=== PATIENT | male | born 1990 | race Caucasian/White ===

== ENCOUNTER 2016-11-05 09:11 | Inpatient (IN) | payer BC, OTHER ==
[2016-11-05 10:01] LABS: % IMMATURE GRANULYOCYTES 0.2 % (0.0-1.1); ABSOLUTE IMMATURE GRANULOCYTES 0.01 10^3/uL (0.00-0.10); ADD DIFF? NO; ADD MORPH? NO; ADD SCAN? NO; ATYPICAL LYMPHOCYTE FLAG 30 (0-99); FRAGMENT RBC FLAG 0 (0-99); HEMATOCRIT 47.8 % (40.0-51.0); HEMOGLOBIN 16.4 g/dL (13.7-17.5); LEFT SHIFT FLG 0 (0-99); LIPEMIA HEMOLYSIS FLAG 90 (0-99); MEAN CELL HEMOGLOBIN 29.7 pg (27.9-34.1); MEAN CELL HEMOGLOBIN CONCENTR. 34.3 g/dL (32.4-36.7); MEAN CELL VOLUME 86.6 fL (81.5-99.8); MEAN PLATELET VOLUME 9.4 fL (8.7-11.7); PLATELET CLUMPS FLAG 0 (0-99); PLATELET COUNT 315 10^3/uL (150-400); RED BLOOD CELL COUNT 5.52 10^6/uL (4.40-6.38); RED CELL DISTRIBUTION WIDTH 12.2 % (11.5-15.2)
[2016-11-05 10:21] LABS: ALANINE AMINOTRANSFERASE 44 IU/L (21-72); ALBUMIN 4.6 g/dL (3.5-5.0); ALKALINE PHOSPHATASE 80 IU/L (38-126); ANION GAP 15 mEq/L (8-16); ASPARTATE AMINOTRANSFERASE 29 IU/L (17-59); BILIRUBIN,TOTAL 1.1 mg/dL (0.1-1.4); CALCIUM 10.2 mg/dL (8.5-10.4); CARBON DIOXIDE 24 mEq/l (22-31); CHLORIDE 104 mEq/L (97-110); GLOMERULAR FILTRATION RATE > 60; GLUCOSE 92 mg/dL (70-100); POTASSIUM 4.3 mEq/L (3.5-5.2); SODIUM 143 mEq/L (134-144); TOTAL PROTEIN 8.2 g/dL (6.3-8.2)
--- NOTE | 2016-11-05 10:21 | EDPHY ---
H & P Stated Complaint: took friends 15mg ER morphine sulfate 2299-still feels "off" - Personal History Current Tetanus/Diphtheria Vaccine: Unsure Current Tetanus Diphtheria and Acellular Pertussis (TDAP): Unsure - Medical/Surgical History Hx Asthma: No Hx Chronic Respiratory Disease: No Hx Diabetes: No Hx Cardiac Disease: No Hx Renal Disease: No Hx Cirrhosis: No Hx Alcoholism: No Hx HIV/AIDS: No Hx Splenectomy or Spleen Trauma: No Other PMH: denies - Social History Smoking Status: Former smoker Time Seen by Provider: 11/05/16 09:28 HPI/ROS: CHIEF COMPLAINT: " I'm off" HISTORY OF PRESENT ILLNESS: 25-year-old male generally healthy with no history of hospitalizations, surgery, history of chronic neurologic dysfunction or disorder states that 3 days ago he consumed a 30 mg morphine tablet which he obtained from a friend for recreational purposes. He states that ever since consuming this he has felt like he has been in a fog, describes feeling "just off", experiencing diplopia, gait instability, difficulty writing. He denies: Headache, photophobia, trauma, fevers, flu-like symptoms, chest pain, back pain , abdominal pain, peripheral paresthesia, weakness, numbness. PRIMARY CARE PROVIDER:none REVIEW OF SYSTEMS: A ten point review of systems was performed and is negative with the exception of the items mentioned in the HPI PAST MEDICAL & SURGICAL HISTORY: No pertinent medical or surgical history SOCIAL HISTORY: No history of chronic alcohol or street drug use beyond recent recreational tablet use described to the patient as "morphine" FAMILY HISTORY: No family history of neurologic disease. PHYSICAL EXAM (Prior to examination, patient consented to physical exam, hands were washed and my usual and customary physical exam procedures followed) 1) GENERAL: Well-developed, well-nourished, alert and oriented. Appears anxious and tremulous 2) HEAD: Normocephalic, atraumatic 3) HEENT: Pupils equal, round, reactive to light bilaterally. Sclera anicteric. No gross gait abnormality Nasopharynx, oropharynx, clear, no lesions. Ears bilaterally with normal tympanic membranes. 4) NECK: Full range of motion, no meningeal signs. 5) LUNGS: Clear auscultation bilaterally, no wheezes, no rhonchi, no retractions. 6) HEART: Regular rate and rhythm, no murmur, no heave, no gallop. 7) ABDOMEN: No guarding, no rebound, no focal tenderness, negative McBurney's, negative Whitfield's, negative Rovsing's, negative peritoneal sign, 8) MUSCULOSKELETAL: Moving all extremities, no focal areas of tenderness, no obvious trauma. No peripheral edema or discoloration. 9) BACK: No CVA tenderness, no midline vertebral tenderness, no fluctuance, no step-off, no obvious trauma, no visual or palpable abnormality. 10) SKIN: No rash, no petechiae. 11) Psychiatric: Patient is oriented X 3, there is no agitation. NEURO: Awake, alert, and oriented to person, place and time. Answers questions appropriately. There were no obvious focal neurologic abnormalities. Positive cerebellar dysfunction are namely heel to toe dysfunction is present. Cranial nerves 2 through to 12 intact. Normal steady gait. Upper and lower extremities bilaterally with strength 5 / 5, reflexes 2+. DIFFERENTIAL DIAGNOSIS: in no particular order including but not limited to intoxicants use, multiple sclerosis, malignancy, transverse myelitis (Garrick Ortiz) Constitutional: Initial Vital Signs Temperature (C) 36.5 C 11/05/16 09:23 Heart Rate 68 11/05/16 09:23 Respiratory Rate 16 11/05/16 09:23 Blood Pressure 137/87 H 11/05/16 09:23 O2 Sat (%) 98 11/05/16 09:23 O2 Delivery Mode Room Air Allergies/Adverse Reactions: No Known Allergies Allergy (Unverified 06/01/15 19:58) Home Medications: Medication Instructions Recorded NK [No Known Home Meds] 11/05/16 Medical Decision Making - Diagnostics Imaging Results: Imaging Impressions Brain MRI 11/05/16 10:09 Impression: 1. Severe bilateral pansinusitis with fluid levels. 2. Otherwise normal MRI brain without and with contrast. 3. No acute infarct, acute hemorrhage, hydrocephalus, or enhancing lesions. Findings and recommendations discussed with Emergency Department physicianGarrick at 1248 hour, 11/05/2016. Final report concurs with initial preliminary interpretation. Lumbar Spine MRI 11/05/16 10:21 Impression: 1. L4-L5: Mild central canal stenosis and bilateral lateral recess stenosis, secondary to small central disk herniation, mild bilateral facet arthropathy and mild degenerative disk disease. 2. L5-S1: Small central subligamentous disk herniation, protrusion, with annular tear and mild bilateral facet arthropathy with moderate degenerative disk disease. However, no central canal or neural foraminal stenosis. 3. Please see above findings at specific levels. Findings and recommendations discussed with Emergency Department physician, Garrick Ortiz, PAC at 1207 hour, 11/05/2016. Final report concurs with initial preliminary interpretation. ED Course/Re-evaluation: Care discussed with Dr. Nitin Crooks in the emergency department. Patient observed for a period of time in the emergency department. MRI was obtained as he complained of diplopia, noted to have cerebellar dysfunction on exam. This was subsequently negative for acute pathology beyond sinusitis. Re-evaluation with serial exams most recently at 1:05 p.m.. He remains ataxic, cerebellar dysfunction noted, unable to ambulate without assistance, complains of continued this diplopia. I reviewed his MRI results showing no definitive acute abnormality. I recommended admission. He is agreeable with this. Phone consultation with hospitalist Shira, admit to Dr. Anne and they will consult with Neurology. (Garrick Ortiz) I did not see this patient while he was in the emergency department. However his care was discussed with the PA while the patient was in the department. I agree with treatment plan and management (Nitin Crooks) - Data Points Laboratory Results: Laboratory Results 11/05/16 09:40 11/05/16 09:40 11/05/16 11/05/16 11/05/16 09:40 09:40 09:40 WBC RBC Hgb Hct MCV MCH MCHC RDW Plt Count MPV Neut % (Auto) Lymph % (Auto) Haywood % (Auto) Eos % (Auto) Baso % (Auto) Nucleat RBC Rel Count Absolute Neuts (auto) Absolute Lymphs (auto) Absolute Monos (auto) Absolute Eos (auto) Absolute Basos (auto) Absolute Nucleated RBC Immature Gran % Immature Gran # Sodium Potassium Chloride Carbon Dioxide Anion Gap BUN Creatinine Estimated GFR Glucose Calcium Total Bilirubin 1.1 mg/dL mg/dL (0.1-1.4) Conjugated Bilirubin 0.4 mg/dL mg/dL (0.0-0.5) Unconjugated Bilirubin 0.7 mg/dL mg/dL (0.0-1.1) AST 30 IU/L IU/L (17-59) ALT 41 IU/L IU/L (21-72) Alkaline Phosphatase 83 IU/L IU/L (38-126) Total Protein 8.1 g/dL g/dL (6.3-8.2) Albumin 4.6 g/dL g/dL (3.5-5.0) Salicylates < 1.0 mg/dL L mg/dL (2.0-20.0) Urine Opiates Screen NEGATIVE (NEGATIVE) Acetaminophen < 10 mcg/mL L mcg/mL (10-30) Urine Barbiturates NEGATIVE (NEGATIVE) Ur Phencyclidine Scrn NEGATIVE (NEGATIVE) Ur Amphetamine Screen NEGATIVE (NEGATIVE) U Benzodiazepines Scrn NEGATIVE (NEGATIVE) Urine Cocaine Screen NEGATIVE (NEGATIVE) U Marijuana (THC) Screen NEGATIVE (NEGATIVE) Ethyl Alcohol < 10 mg/dL mg/dL (0-10) 11/05/16 11/05/16 09:40 09:40 WBC 6.03 10^3/uL 10^3/uL (3.80-9.50) RBC 5.52 10^6/uL 10^6/uL (4.40-6.38) Hgb 16.4 g/dL g/dL (13.7-17.5) Hct 47.8 % % (40.0-51.0) MCV 86.6 fL fL (81.5-99.8) MCH 29.7 pg pg (27.9-34.1) MCHC 34.3 g/dL g/dL (32.4-36.7) RDW 12.2 % % (11.5-15.2) Plt Count 315 10^3/uL 10^3/uL (150-400) MPV 9.4 fL fL (8.7-11.7) Neut % (Auto) 54.5 % % (39.3-74.2) Lymph % (Auto) 38.5 % % (15.0-45.0) Haywood % (Auto) 5.8 % % (4.5-13.0) Eos % (Auto) 0.5 % L % (0.6-7.6) Baso % (Auto) 0.5 % % (0.3-1.7) Nucleat RBC Rel Count 0.0 % % (0.0-0.2) Absolute Neuts (auto) 3.29 10^3/uL 10^3/uL (1.70-6.50) Absolute Lymphs (auto) 2.32 10^3/uL 10^3/uL (1.00-3.00) Absolute Monos (auto) 0.35 10^3/uL 10^3/uL (0.30-0.80) Absolute Eos (auto) 0.03 10^3/uL 10^3/uL (0.03-0.40) Absolute Basos (auto) 0.03 10^3/uL 10^3/uL (0.02-0.10) Absolute Nucleated RBC 0.00 10^3/uL 10^3/uL (0-0.01) Immature Gran % 0.2 % % (0.0-1.1) Immature Gran # 0.01 10^3/uL 10^3/uL (0.00-0.10) Sodium 143 mEq/L mEq/L (134-144) Potassium 4.3 mEq/L mEq/L (3.5-5.2) Chloride 104 mEq/L mEq/L (97-110) Carbon Dioxide 24 mEq/l mEq/l (22-31) Anion Gap 15 mEq/L mEq/L (8-16) BUN 14 mg/dL mg/dL (7-23) Creatinine 1.0 mg/dL mg/dL (0.7-1.3) Estimated GFR > 60 Glucose 92 mg/dL mg/dL (70-100) Calcium 10.2 mg/dL mg/dL (8.5-10.4) Total Bilirubin 1.1 mg/dL mg/dL (0.1-1.4) Conjugated Bilirubin Unconjugated Bilirubin AST 29 IU/L IU/L (17-59) ALT 44 IU/L IU/L (21-72) Alkaline Phosphatase 80 IU/L IU/L (38-126) Total Protein 8.2 g/dL g/dL (6.3-8.2) Albumin 4.6 g/dL g/dL (3.5-5.0) Salicylates Urine Opiates Screen Acetaminophen Urine Barbiturates Ur Phencyclidine Scrn Ur Amphetamine Screen U Benzodiazepines Scrn Urine Cocaine Screen U Marijuana (THC) Screen Ethyl Alcohol Departure - Departure Disposition: [facility] Acute Clinical Impression: Ataxia Condition: Fair
[2016-11-05 10:36] LABS: ETHANOL SERUM < 10 mg/dL (0-10); SALICYLATE < 1.0 mg/dL (2.0-20.0)
[2016-11-05 11:24] LABS: ALBUMIN 4.6 g/dL (3.5-5.0); BILIRUBIN,TOTAL 1.1 mg/dL (0.1-1.4); BILIRUBIN-CONJUGATED 0.4 mg/dL (0.0-0.5); BILIRUBIN-UNCONJUGATED 0.7 mg/dL (0.0-1.1); TOTAL PROTEIN 8.1 g/dL (6.3-8.2)
[2016-11-05] MEDS ORDERED: GADOBUTROL 10 ML VIAL IVP ONE (11:31)
[2016-11-05] MEDS ORDERED: ONDANSETRON DISINTEGRATING 4 MG TAB PO PRN (14:35)
[2016-11-05] MEDS ORDERED: ONDANSETRON 4 MG/2 ML VIAL IVP PRN (14:35)
[2016-11-05] MEDS ORDERED: LORazepam 0.5 MG TAB PO PRN (14:35)
[2016-11-05] MEDS: NS 1,000 ML IV SCH (15:38)
[2016-11-05] MEDS: ACETAMINOPHEN 325 MG TAB PO PRN ×3 (15:42→22:26)
--- NOTE | 2016-11-05 16:31 | GHP ---
[f rep st] HISTORY AND PHYSICAL DATE OF ADMISSION: 11/05/2016 CHIEF COMPLAINT: Double vision and difficulty walking. HISTORY: This is a 25-year-old man with no significant past medical history, who presents with 2 day s of difficulty walking secondary to clumsiness as well as double and blurred vision. The patient no lito that these symptoms began shortly after he took one-half of a friend's long-acting morphine table t which was a 15 mg tablet. This was on evening. He notes he has never taken morphine in t he past. His friend is prescribed this medication from a doctor and takes it daily and has not had i ssues with the medication. He denies taking any other substances. He is currently a college student living in an apartment. He states he is around people who are sick fairly frequently and notes that his girlfriend has recently become sick and has possibly similar symptoms. He also has had some nec k stiffness that began this morning. He has never had similar symptoms in the past. No fevers or ch ills. No nausea or vomiting. He does not believe he has true weakness but is uncertain if he may farr ve some in the lower extremities. He has had some numbness versus pins and needle sensation in his b ilateral upper and bilateral lower extremities since these symptoms began. PAST MEDICAL HISTORY: None. PAST SURGICAL HISTORY: None. SOCIAL HISTORY: The patient is currently a college student. He lives in an apartment. He denies ro utine use of illicit substances and only social alcohol use otherwise. FAMILY HISTORY: As far as he knows, there is no pertinent family history of neurologic issues. REVIEW OF SYSTEMS: A 10-point review of systems obtained. Negative except as per HPI. HOME MEDICATIONS: None. ALLERGIES: None. PHYSICAL EXAMINATION: VITAL SIGNS: BP 121/63, heart rate 63, respiratory rate 16, O2 sats 97% on ro om air. Temperature is 36.3. GENERAL APPEARANCE: Well-developed/well-nourished young man. He is i n mild distress. EYES: Anicteric, he has vertical nystagmus but otherwise extraocular movements are intact. Pupils are equal, round, reactive to light and accommodation. CARDIOVASCULAR: Regular rat e and rhythm. No MRG. PULMONARY: CTA bilaterally. ABDOMEN: Soft, nontender, nondistended. EXTRE MITIES: No clubbing, cyanosis, or edema. SKIN: Warm, dry, well perfused. NEURO/PSYCH: Cranial nerves are intact. Strength and sensation are intact. Coordination seems inta ct. He does have difficulty with tandem walking with significant ataxia on attempting to do that and difficulty with his vision in terms of having frequent diplopia. CLINICAL DATA: Labs reviewed. CBC is unremarkable. Chemistry is unremarkable including liver funct ion tests. Drug screen is negative for everything. Brain MRI, I personally reviewed and interpreted, shows severe bilateral pansinusitis with fluid leve ls. Otherwise, a normal brain MRI. Lumbar spine MRI showing mild central canal stenosis at L4-L5 secondary to small central disc herniat ion as well as at L5-S1. ASSESSMENT/PLAN: This is a 25-year-old man with no significant past medical history presenting with diplopia and ataxia for a couple of days in the setting of recently taking a friend's opiate tablet. 1. Ataxia/diplopia. This is felt by the patient to be related to ingestion of an opiate tablet of h is friend's, although the time frame and symptoms seem less likely to be related to that. I do have a suspicion for possible viral meningitis given concurrent neck stiffness and history of possible sic k contacts. He has also had a recent severe sinusitis and query if some component of vertigo could b e contributing. Neurology has been consulted. Discussed with the patient plan for possible LP if hi s symptoms do not improve. For now, we will also start p.r.n. Ativan for a possibility of anxiety co ntributing especially in the setting of bilateral hand tingling. 2. Opiate use. This does not seem to be a recurrent issue for this patient who has been quite hones t about his recent use. He states he will not do that again. It seems likely that he is being hones t about that. 3. Sinusitis. Again this is noted on brain MRI and per the patient, he has had severe symptoms up u ntil a couple days ago when they began to improve. Again, plan for LP in the morning if his symptoms do not improve and certainly will look for signs of bacterial meningitis at that time though his sym ptoms seem less likely related to that. 4. Disposition: Observation status. Suspect he will need less than 48- hour stay for evaluation an d management of above. 5. Patient is new to my care. Old records reviewed, summarized as per HPI and past medical history. Care plan reviewed with ER physician and Neurology. /[id number]/MODL
--- NOTE | 2016-11-05 16:35 | GCON ---
[f rep st] CONSULTATION NEUROLOGY CONSULTATION REFERRING PHYSICIAN: Maryann Anne MD BILLING INFORMATION: 70 minutes total on the floor reviewing emergency department records and MRI images of brain and lumbar spine. CHIEF COMPLAINT: Headache and malaise. HISTORY OF PRESENT ILLNESS: The patient is a very pleasant 25-year-old young man, who is studying economics at [employer]. He has no past medical history or family history of neurologic problems. The patient states that night he took an extended release version of morphine 15 or 30 mg 1 time recreationally, and since that time has started feeling "off." He feels foggy with generalized weakness and having binocular diplopia. He may be having some episodic headaches, as well. He denies any other recreational drug use, specifically benzodiazepines, IV drug use, and excessive alcohol use, and states he is not a chronic opiate user. He has not had any fevers or rigors thus far. REVIEW OF SYSTEMS: Ten-point review of system was done and only pertinent to HPI. PAST MEDICAL HISTORY: None. 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 FAMILY HISTORY: No family history of neurologic disease. VITAL SIGNS: Temperature is 36.5 heart rate 68, respiratory rate 16, blood pressure 137/87. PHYSICAL EXAMINATION: GENERAL: Patient is in no acute distress. Is a pleasant young man. NECK: The patient has no meningismus on exam. He has a supple and soft neck. HIGHER MENTAL FUNCTION: He is awake, alert, and lucid. No aphasia. CRANIAL NERVES: The patient states he has binocular diplopia and it improves by occluding 1 eye. He states the diplopia is not completely full but may be more of a blurriness that is suggestive of double vision horizontally. On formal testing of his extraocular nerves, he has normal extraocular movements without any cranial nerve deficits noted. His eyes are conjugate and moving fully in all directions. He has some physiologic end- stage nystagmus which extinguishes. Otherwise, cranial nerve exam 2 through 7, 11, and 12 are normal. MOTOR: Normal to power testing throughout tone and reflexes. SENSORY: Normal to light touch throughout. GAIT: Testing is normal. Romberg is negative. IMPRESSION/PLAN: 1. Recent sick contacts. 2. Malaise, headaches, and intermittent double vision. I do not think the patient's symptoms are likely related to taking the one dose of extended release morphine. He has had sick contacts recently through his girlfriend's son attending daycare. Indeed, he just found out his girlfriend is coming down with similar symptoms. Overall, my impression is that he has a viral syndrome. He may have some mild viral meningoencephalitis along with it. Systemically, he has no meningismus and no white count and no fever. Certainly, this would make the probability of a significant viral meningitis or bacterial meningitis low. We will proceed with a lumbar puncture to check for any leukocytosis in his cerebrospinal fluid and send testing for West Nile and HSV 1 and 2, as well. The patient has a history of cold sores. We will start empiric acyclovir 10mg/kg q 8 hours IV until CSF results are complete. We will certainly add further antibiotics if any suspicion of bacterial meningitis. The above has been ordered. If the patient feels much better by tomorrow morning and lumbar puncture has not been done yet, certainly we can reconsider that test, as the viral syndrome may improve spontaneously without further testing needed. We will watch him closely overnight. Thank you for this consultation. Please do not hesitate to call for any questions or changes in neurologic status with this very pleasant patient. /[id number]/MODL MTDD
[2016-11-05 16:48] LABS: INR 1.05 (0.83-1.16); PROTIME(PATIENT) 13.6 SEC (12.0-15.0)
[2016-11-05] MEDS ORDERED: NA BICARBONATE 50 MEQ/50 ML VIAL ONE (17:10)
[2016-11-05] MEDS ORDERED: LIDOCAINE 1% 300 MG/30 ML SDV ONE (17:11)
[2016-11-05] MEDS ORDERED: LIDOCAINE 1% 5 ML SDV ONE (17:11)
[2016-11-05 18:48] LABS: PROTEIN, CSF 48 mg/dL (12-60)
[2016-11-05 18:59] LABS: CSF APPEARANCE CLEAR (CLEAR); CSF COLOR COLORLESS (COLORLESS); CSF SUPERNATANT COLORLESS (COLORLESS); WBC, CSF 10 /mm3 (0-5)
[2016-11-05] MEDS ORDERED: NS 1,000 ML IV ONE (19:11)
--- NOTE | 2016-11-05 19:48 | NEUROPROG ---
Assessment: ADDENDUM CSF results so far show 10 WBC, normal protein. Unlikely to be bacterial meningitis. However, differential and gram stain pending. Therefore, I spoke to ID service - and we decided to add IV Vancomycin ( 1 gram q 12h) and IV ceftriaxone (2 gram q 12h) to the acyclovir until further results return. I have asked they consult on him tomorrow as well. I appreciate the ID input. Objective: Vital Signs Temp Pulse Resp BP Pulse Ox 36.9 C 66 18 114/67 97 11/05/16 16:00 11/05/16 16:00 11/05/16 16:00 11/05/16 16:00 11/05/16 14:01 11/04/16 11/05/16 11/06/16 05:59 05:59 05:59 Intake Total 1137 Balance 1137 PT 13.6 SEC (12.0-15.0) 11/05/16 09:00 INR 1.05 (0.83-1.16) 11/05/16 09:00 Allergies/Adverse Reactions: No Known Allergies Allergy (Unverified 06/01/15 19:58)
[2016-11-05] MEDS: ACYCLOVIR 700 MG in D5W 100 ML IV SCH (19:51)
[2016-11-05] MEDS: VANCOMYCIN HCL/NORMAL SALINE 250 ML IV SCH (21:13)
[2016-11-05] MEDS ORDERED: diphenhydrAMINE 25 MG CAP PO PRN (22:19)
[2016-11-05] MEDS: cefTRIAXone 2 GM in D5W 50 ML IV SCH (23:01)
[2016-11-06] MEDS: ACYCLOVIR 700 MG in D5W 100 ML IV SCH ×3 (03:33→20:08)
[2016-11-06] MEDS: cefTRIAXone 2 GM in D5W 50 ML IV SCH (09:17)
[2016-11-06] MEDS: VANCOMYCIN HCL/NORMAL SALINE 250 ML IV SCH (09:18)
[2016-11-06] MEDS: ACETAMINOPHEN 325 MG TAB PO PRN (10:11)
[2016-11-06] MEDS: NS 1,000 ML IV SCH (10:12)
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
[2016-11-06 11:41] LABS: ANION GAP 11 mEq/L (8-16); CALCIUM 9.5 mg/dL (8.5-10.4); CARBON DIOXIDE 22 mEq/l (22-31); CHLORIDE 107 mEq/L (97-110); CREATININE 0.9 mg/dL (0.7-1.3); GLOMERULAR FILTRATION RATE > 60; GLUCOSE 82 mg/dL (70-100); POTASSIUM 4.5 mEq/L (3.5-5.2); SODIUM 140 mEq/L (134-144)
--- NOTE | 2016-11-06 12:14 | HOSPPROG ---
Hospitalist Progress Note Assessment/Plan: 25 yo M with no PMH presenting with c/o diplopia and ataxia felt to be most likely due to viral meningitis # viral meningitis: suspected based on presentation and initial csf analysis, not c/w bacterial meningitis and off of abx for now. Continued on IV acyclovir pending csf HSV however this seems less likely given his presentation. Appreciate ID/neuro input--WNV, enterovirus, cmv other considerations and are pending from CSF studies. Also HIV, syphilis checks pending. # diplopia/ataxia: suspect 2/2 above though other neurologic sxs such as Guillain [place] also a consideration. At this time presentation is a bit atypical and w/u still underway. His sxs have only minimally improved since admission # morphine use: this was days prior to presentation and not felt to be contributing to his presentation, patient does not have a hx of habitual drug use and drug screen negative # IP status, given continued sxs and incomplete w/u he will require > 48 hours in house Care plan reviewed with neurology and ID. Subjective: no significant overnight events, patient notes continued issues with his vision as well as continued gait instability Objective: Vital Signs Temp Pulse Resp BP Pulse Ox 36.7 C 58 L 18 119/65 97 11/06/16 07:45 11/06/16 07:45 11/06/16 07:45 11/06/16 07:45 11/06/16 07:45 Microbiology 11/05/16 15:50 Gram Stain - Final Cerebral Spinal Fluid Laboratory Results 11/06/16 11:16 11/05/16 11/06/16 11/07/16 05:59 05:59 05:59 Intake Total 3737 Balance 3737 PT 13.6 SEC (12.0-15.0) 11/05/16 09:00 INR 1.05 (0.83-1.16) 11/05/16 09:00 awake alert nad anicteric, horizontal nystagmus, eomi op clear rrr no mrg cta b soft nt nd no cce warm dry well perfused oriented appropriate--while walking with PT legs "buckled" leading to near fall ICD10 Worksheet Patient Problems: Problems Problem Status Onset Ataxia Acute
[2016-11-06] MEDS ORDERED: ACETAMINOPHEN 500 MG TAB PO ONE (13:15)
[2016-11-06] MEDS ORDERED: diphenhydrAMINE 25 MG CAP PO ONE (13:15)
--- NOTE | 2016-11-06 13:16 | NEUROPROG ---
Assessment: 1. Headache 2. Neurologic symptoms 3. Mild CSF pleocytosis, with lymphocytic predominance The patient's CSF exam showed 10 white cells with a lymphocytic predominance. I appreciate the input from Infectious Disease. They DC antibiotics due to the absence of bacterial infection. We will continue IV acyclovir until HSV PCRs come back and are negative. In reviewing the patient's history, his double vision is improving today but still he feels ataxic. The patient has 0 to 1+ reflexes throughout. The patient now tells me that in the past he has had brisk reflexes. This information would not suggest the possibility of Guillain-[place] syndrome, specifically the Ramsey Archibald variant. I discussed at great length with the patient. He has no shortness of breath or dysphagia. Even though his double vision symptoms are improving I think it would be reasonable to initiate treatment with IVIG 0.4 g per kg for 5 days. We discussed potential risks, benefits and alternatives of this treatment including increased blood discussed the. I recommend he stay on maintenance fluids at 125 cc per hour normal saline. I discussed the above plan with infectious disease and Hospital Medicine regarding continuing acyclovir and simultaneously treating him with IVIG for possible Guillain-[place]. We will get baseline Objective: Vital Signs Temp Pulse Resp BP Pulse Ox 36.7 C 58 L 18 119/65 97 11/06/16 07:45 11/06/16 07:45 11/06/16 07:45 11/06/16 07:45 11/06/16 07:45 Microbiology 11/06/16 10:16 Respiratory Panel (PCR) - Final Nasal, Sinus - Swab No Organism Detected 11/05/16 15:50 Gram Stain - Final Cerebral Spinal Fluid Laboratory Results 11/06/16 11:16 11/05/16 11/06/16 11/07/16 05:59 05:59 05:59 Intake Total 3737 Balance 3737 PT 13.6 SEC (12.0-15.0) 11/05/16 09:00 INR 1.05 (0.83-1.16) 11/05/16 09:00 Allergies/Adverse Reactions: No Known Allergies Allergy (Unverified 06/01/15 19:58)
--- NOTE | 2016-11-06 13:27 | NEUROPROG ---
Assessment: 1. Headache 2. Neurologic symptoms 3. Mild CSF pleocytosis, with lymphocytic predominance The patient's CSF exam showed 10 white cells with a lymphocytic predominance. I appreciate the input from Infectious Disease. They DC'ed antibiotics due to the absence of bacterial infection. We will continue IV acyclovir until HSV PCRs come back and are negative. In reviewing the patient's history, his double vision is improving today but still he feels ataxic. The patient has 0 to 1+ reflexes throughout. The patient now tells me that in the past he has had brisk reflexes. This information would not suggest the possibility of Guillain-[place] syndrome, specifically the Ramsey Archibald variant. I could not find the anti GQ1b antibody in orders. I discussed at great length with the patient. He has no shortness of breath or dysphagia. Even though his double vision symptoms are improving I think it would be reasonable to initiate treatment with IVIG 0.4 g per kg for 5 days. We discussed potential risks, benefits and alternatives of this treatment including increased blood discussed the. I recommend he stay on maintenance fluids at 125 cc per hour normal saline. I discussed the above plan with infectious disease and Hospital Medicine regarding continuing acyclovir and simultaneously treating him with IVIG for possible Guillain-[place]. We will get baseline pulmonary parameters for respiratory function. I spoke to Respiratory therapy and they will obtain baseline inspiratory and expiratory and continue daily. If there is any concern for impending respiratory failure, we will immediately transfer him to the ICU. He is not short of breath on exam . We could not find the electronic order for this request for Respiratory therapy, however I directly spoke to them and they agreed to the above. Patient should be evaluated by PT and OT as well. He will continue standard prophylaxis. We will continue to follow and I will sign out this patient to my colleague Dr. Shipley. Subjective: Double vision improving Objective: Vital Signs Temp Pulse Resp BP Pulse Ox 36.7 C 58 L 18 119/65 97 11/06/16 07:45 11/06/16 07:45 11/06/16 07:45 11/06/16 07:45 11/06/16 07:45 Microbiology 11/06/16 10:16 Respiratory Panel (PCR) - Final Nasal, Sinus - Swab No Organism Detected 11/05/16 15:50 Gram Stain - Final Cerebral Spinal Fluid Laboratory Results 11/06/16 11:16 11/05/16 11/06/16 11/07/16 05:59 05:59 05:59 Intake Total 3737 Balance 3737 PT 13.6 SEC (12.0-15.0) 11/05/16 09:00 INR 1.05 (0.83-1.16) 11/05/16 09:00 On exam he continues to have normal extraocular movement No focal weakness Negative Romberg Reflexes are 0 to 1+ throughout 35 total minutes floor time reviewing CSF results, interval history coordinating care with infectious disease and Hospital Medicine. Allergies/Adverse Reactions: No Known Allergies Allergy (Unverified 06/01/15 19:58)
[2016-11-06] MEDS: ACETAMINOPHEN 500 MG TAB PO SCH (14:21)
[2016-11-06] MEDS: IMMUNE GLOBULIN 10 GM/100 ML VIAL IV SCH (15:21)
--- NOTE | 2016-11-06 17:08 | ASMTCMCOM ---
CM Note CM Note Notes: Reviewed chart, spoke w/ RADHA Kunz. Pt admitted w/ new onset of ataxia, BOWERS w/ neurologic symptoms. ID and Neurology following; pt's dx remains unclear. Pt is a college student and lives in an apartment w/ roommates. Discharge plan and needs remain TBD at this time. CM will cont to follow. Date Signed: 11/06/2016 02:14 PM Electronically Signed By:Monique Stubbs
[2016-11-06] MEDS: IMMUNE GLOBULIN 20 GM/200 ML VIAL IV SCH (17:14)
[2016-11-07] MEDS: ACYCLOVIR 700 MG in D5W 100 ML IV SCH ×3 (04:01→20:08)
[2016-11-07] MEDS: ACETAMINOPHEN 325 MG TAB PO PRN ×3 (04:02→18:25)
[2016-11-07] MEDS: NS 1,000 ML IV SCH (04:02)
[2016-11-07 05:03] LABS: ANION GAP 12 mEq/L (8-16); CALCIUM 9.5 mg/dL (8.5-10.4); CARBON DIOXIDE 21 mEq/l (22-31); CHLORIDE 108 mEq/L (97-110); GLOMERULAR FILTRATION RATE > 60; GLUCOSE 82 mg/dL (70-100); POTASSIUM 4.5 mEq/L (3.5-5.2); SODIUM 141 mEq/L (134-144)
--- NOTE | 2016-11-07 11:04 | ASMTCMCOM ---
CM Note CM Note Notes: Met with patient regarding discharge plan of care. Patient is a student at , resides in an apartment. Pt declines Case Management assistance at this time. Has been cleared by PT. Anticipate home independently when medically stable. Case Management available should needs arise. Date Signed: 11/07/2016 11:04 AM Electronically Signed By:Dipika Paris
--- NOTE | 2016-11-07 12:50 | NEUROPROG ---
Assessment: [id number] HPI: Pt seen 11/07/16. Please see Dr. Jaspal Cavanaugh notes from 11/05/16 and 11/06/16 for full details. The patient feels better and hopes to go home when he can. Assessment: 1. Headache, visual disturbance, sense of ataxia, areflexia, mild CSF pleocytosis with lymphocytic predominance: It is felt the patient may have a viral meningitis vs Mill-Archibald variant of acute inflammatory demyelinating polyneuropathy. Recs: - ID following and has patient on acyclovir until herpes meningitis excluded - Pt on 2 / 5 days of IVIG for possible AIDP variant (from a neurology perspective, it would be OK to complete these infusions at home if he has no other medical indication to remain in the hospital if the hospitalist and ID agree) - Outpatient f/u with Dr. Jaspal Allen (neurology) 1-3 weeks after hospital discharge Neurology will continue to follow closely. 35 min spent with patient, majority of time spent counseling on prognosis and treatment plan. Objective: Vital Signs Temp Pulse Resp BP Pulse Ox 36.4 C 59 L 12 121/79 H 95 11/07/16 08:00 11/07/16 08:00 11/07/16 10:29 11/07/16 08:00 11/07/16 08:00 Laboratory Results 11/07/16 04:15 11/06/16 11/07/16 11/08/16 05:59 05:59 05:59 Intake Total 1429 Balance 1429 PT 13.6 SEC (12.0-15.0) 11/05/16 09:00 INR 1.05 (0.83-1.16) 11/05/16 09:00 Allergies/Adverse Reactions: No Known Allergies Allergy (Unverified 06/01/15 19:58)
--- NOTE | 2016-11-07 13:21 | HOSPPROG ---
Hospitalist Progress Note Assessment/Plan: 25 yo M with no PMH presenting with c/o diplopia and ataxia felt to be most likely due to viral meningitis. Today is my first encounter with the patient/ chart reviewed. Reviewed his care with Dr. Keene. He will update the patient' s parents on the plan of care. Also in the meantime a school excuse was provided for the patient * viral meningitis: suspected based on presentation and initial csf analysis IV acyclovir multiple labs pending (west nile) * diplopia/ataxia: improving/ r/o Guillane [place] *headache likely due to viral meningitis vs Mill-Archibald variant of acute inflammatory demyelinating polyneuropathy day #2/5 of IVIG * morphine use prior to admission drug screen is negative/ not a hx of habitual us: * IP status, given continued sxs and incomplete w/u he will require > 48 hours in house Subjective: Patient says he is feeling better/ still has a headache. Objective: Vital Signs Temp Pulse Resp BP Pulse Ox 36.4 C 59 L 12 121/79 H 95 11/07/16 08:00 11/07/16 08:00 11/07/16 10:29 11/07/16 08:00 11/07/16 08:00 Laboratory Results 11/07/16 04:15 11/06/16 11/07/16 11/08/16 05:59 05:59 05:59 Intake Total 1429 Balance 1429 PT 13.6 SEC (12.0-15.0) 11/05/16 09:00 INR 1.05 (0.83-1.16) 11/05/16 09:00 - Physical Exam Constitutional: no apparent distress, appears nourished, not in pain Eyes: PERRL Ears, Nose, Mouth, Throat: hearing normal Cardiovascular: regular rate and rhythym Respiratory: no respiratory distress Gastrointestinal: normoactive bowel sounds Skin: warm, other (mulitple tattoos) Musculoskeletal: full muscle strength Neurologic: AAOx3 Psychiatric: interacting appropriately ICD10 Worksheet Patient Problems: Problems Problem Status Onset Ataxia Acute
[2016-11-07] MEDS: ACETAMINOPHEN 500 MG TAB PO SCH (13:59)
[2016-11-07] MEDS: diphenhydrAMINE 25 MG CAP PO SCH (14:00)
[2016-11-07 14:28] LABS: ANTINUCLEAR ANTIBODIES SCREEN 0.19 UNITS (<=1.00)
[2016-11-07] MEDS: IMMUNE GLOBULIN 20 GM/200 ML VIAL IV SCH (15:10)
--- NOTE | 2016-11-07 16:28 | PCMIDPN ---
Assessment/Plan: Assessment: Manage encephalitis-unclear etiology but likely viral. Amoebic etiology was contemplated given his exposure to warm fresh water approximately 1 week ago and his significant sinus pathology. However the patient is not toxic appearing which goes against this diagnosis and he also has a lymphocytic predominant very mild pleocytosis in the CSF. Patient has diplopia has improved somewhat since admission. Reviewed his MRI which shows no significant signs of inflammation. Also personally reviewed his spine down CSF from 2 days ago. No amoeba like organisms seen. Patient is currently on empiric IV acyclovir. HSV PCR from CSF is pending. Suspect this is a possible but low likely etiology. Plan: 1. Continue empiric acyclovir for now. Continue to re-evaluate symptoms. Given the upper respiratory viral like illness in both his girlfriend and his girlfriend's young child this is probably the etiology. 2. Follow clinical course. Subjective: Patient is sitting up in his hospital bed. He is clearly not toxic. States that he continues to have headache at the same intensity from 2 days ago but that his vision has somewhat improved. No fevers or chills. No other symptoms. Objective: Acyclovir # 2 Vital Signs Temp Pulse Resp BP Pulse Ox 36.5 C 65 14 123/83 H 97 11/07/16 16:00 11/07/16 16:00 11/07/16 16:00 11/07/16 16:00 11/07/16 16:00 Laboratory Results 11/07/16 04:15 11/06/16 11/07/16 11/08/16 05:59 05:59 05:59 Intake Total 1429 Balance 1429 - Physical Exam General Appearance: WD/WN, alert, thin, non-toxic Respiratory: lungs clear, normal breath sounds, No respiratory distress Cardiac/Chest: regular rate, rhythm, No tachycardia Skin: normal color, warm/dry, No rash Neuro/Psych: alert, normal mood/affect, oriented x 3 ICD10 Worksheet Patient Problems: Problems Problem Status Onset Ataxia Acute
[2016-11-07 17:23] LABS: HSV 1 PCR, CSF Negative (Negative); HSV 2 PCR, CSF Negative (Negative)
[2016-11-07] MEDS: IMMUNE GLOBULIN 10 GM/100 ML VIAL IV SCH (18:05)
[2016-11-07 19:56] LABS: ENTEROVIRUS BY PCR Negative (Negative); SPECIMEN SOURCE ENTEROVIRUS CSF
[2016-11-07] MEDS: KETOROLAC 30 MG/1 ML SDV IVP PRN (20:08)
[2016-11-08] MEDS: ACETAMINOPHEN 325 MG TAB PO PRN ×2 (04:46→20:03)
[2016-11-08] MEDS: ACYCLOVIR 700 MG in D5W 100 ML IV SCH (04:47)
[2016-11-08] MEDS: KETOROLAC 30 MG/1 ML SDV IVP PRN ×3 (04:47→19:38)
[2016-11-08] MEDS ORDERED: oxyCODONE IR 5 MG TAB PO PRN (05:00)
--- NOTE | 2016-11-08 08:14 | PCMIDPN ---
Assessment/Plan: Assessment/Plan: 1. 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 -However, multiple studies still pending: WNV, Syphillis, CMV. -Negative studies thus far include: HIV, HSV, Enterovirus, resp pathogen PCR, CSF culture for bacteria, -In consideration could be Zika virus and Chikungunya as both have been associated with post infection GBS like syndrome sequelae. However, case reports reviewed all had patient with acute illness first with then subsequent GBS complication thereafter. He did not have noticeable acute illness during or thereafter from his travels as such. -Only develop sinusitis like symptoms 2-3 weeks ago. -May consider checking Zika/chikungunya virus Abs especially if above remaining studies are negative. -MRI brain, lumbar spine with no focal deficits or lesions/abscess etc. -recommend Ophthalmology to do eye exam to see any other changes such as retinal changes etc. - need PT evaluation -d/c acyclovir -Results reviewed with patient, plan of care discussed at length - care coordinated with RN, hospitalist, neurology 2. Headache: - worse over past couple of days. -d/d: post LP headache with CSF leak vs related to IVIG -pt unable to describe definite worsening/improvement with position. - does have some concomitant nausea and dizziness. -Getting some relief with pain meds but only takes it down from 8-11/06 to 06/06. - discussed doing blood patch. will discuss further with neurology. 3. Constipation: - no BM's since admit - will start bowel protocol MEds IVIG- started 11/06/16--- Subjective: Afebrile. c/o headaches worse since past couple of days. having some nausea as well. some dizziness when upright. he can't tell me if headache is worse when upright compared to when laying down. hasn't moved bowels. denies rash. denies sob but does feel some it is a little laboring. denies cough. Reviewed recent trip to [place] again. he again states he was well while there and after return. he was staying at a resort while there. he thinks he was htere around mid July for a week. he is not monogamous with his girlfriend and has a couple of sexual encounters since July, no condoms. he did not have any sexual encounters in [place]. he doesn't know much about the women he has sex with particularly if they had recent travel to Zika endemic areas or if they hx of STI's. NO other travels apart from [place] in [place] and [place] over day weekend. Objective: Vital Signs Temp Pulse Resp BP Pulse Ox 36.9 C 74 16 110/60 94 11/07/16 23:40 11/07/16 23:40 11/07/16 23:40 11/07/16 23:40 11/07/16 23:40 Laboratory Results 11/07/16 04:15 11/07/16 11/08/16 11/09/16 05:59 05:59 05:59 Intake Total 1429 1607 Balance 1429 1607 - Physical Exam General Appearance: alert, no apparent distress EENT: other (very mild oral candidiasis noted on buccal mucosa. tonsils large. ) Respiratory: lungs clear Neck: supple Cardiac/Chest: regular rate, rhythm, No systolic murmur Extremities: No swelling Abdomen: normal bowel sounds, non-tender, soft, No distended Skin: other (one small folliculitis like lesions noted on his back with mild induration. no pustules, no vesicles. no other rashes noted. ), No rash Neuro/Psych: no motor/sensory deficits, other (did not test reflexes) - Time Spent With Patient Time Spent with Patient: greater than 35 minutes Time Spent with Patient: Greater than 35 minutes spent on this patients care, greater than 50% of time spent counseling, educating, and coordinating care regarding the above mentioned plan. ICD10 Worksheet Patient Problems: Problems Problem Status Onset Ataxia Acute
[2016-11-08] MEDS ORDERED: LACTULOSE 20 GM/30 ML UDCUP PO PRN (08:25)
[2016-11-08] MEDS ORDERED: BISACODYL 10 MG SUPP PR PRN (08:25)
[2016-11-08] MEDS ORDERED: MAGNESIUM HYDROXIDE 30 ML UDCUP PO PRN (08:25)
[2016-11-08] MEDS ORDERED: POLYETHYLENE GLYCOL 3350 17 GM PKT PO PRN (08:25)
[2016-11-08 08:42] LABS: % IMMATURE GRANULYOCYTES 0.2 % (0.0-1.1); ABSOLUTE IMMATURE GRANULOCYTES 0.01 10^3/uL (0.00-0.10); ADD DIFF? NO; ADD MORPH? NO; ADD SCAN? NO; ATYPICAL LYMPHOCYTE FLAG 20 (0-99); FRAGMENT RBC FLAG 0 (0-99); HEMATOCRIT 41.9 % (40.0-51.0); HEMOGLOBIN 14.6 g/dL (13.7-17.5); LEFT SHIFT FLG 0 (0-99); LIPEMIA HEMOLYSIS FLAG 90 (0-99); MEAN CELL HEMOGLOBIN CONCENTR. 34.8 g/dL (32.4-36.7); MEAN CELL VOLUME 86.2 fL (81.5-99.8); MEAN PLATELET VOLUME 9.2 fL (8.7-11.7); PLATELET CLUMPS FLAG 0 (0-99); PLATELET COUNT 266 10^3/uL (150-400); RED BLOOD CELL COUNT 4.86 10^6/uL (4.40-6.38)
[2016-11-08] MEDS: SENNOSIDES/DOCUSATE SODIUM TAB PO SCH ×2 (08:43→20:03)
[2016-11-08 09:01] LABS: ALANINE AMINOTRANSFERASE 31 IU/L (21-72); ALBUMIN 3.7 g/dL (3.5-5.0); ALKALINE PHOSPHATASE 64 IU/L (38-126); ANION GAP 9 mEq/L (8-16); ASPARTATE AMINOTRANSFERASE 24 IU/L (17-59); BILIRUBIN,TOTAL 0.6 mg/dL (0.1-1.4); CALCIUM 9.5 mg/dL (8.5-10.4); CARBON DIOXIDE 23 mEq/l (22-31); CHLORIDE 107 mEq/L (97-110); CREATININE 1.1 mg/dL (0.7-1.3); GLOMERULAR FILTRATION RATE > 60; GLUCOSE 85 mg/dL (70-100); POTASSIUM 4.1 mEq/L (3.5-5.2); SODIUM 139 mEq/L (134-144); TOTAL PROTEIN 8.2 g/dL (6.3-8.2)
--- NOTE | 2016-11-08 11:26 | HOSPPROG ---
Hospitalist Progress Note Assessment/Plan: 25 yo M with no PMH presenting with c/o diplopia and ataxia felt to be most likely due to viral meningitis. Today is my first encounter with the patient/ chart reviewed. Reviewed his care with Dr. Allen and Dr Shipley. He will update the patient's parents on the plan of care. 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 Acyclovir was discontinued, HSV is negative This far HIV, enterovirus, respiratory pathogen PCR, CSF culture is all negative multiple labs pending ([place], Zika) PT and OT have been ordered Dr Saba did a bedside ophthalmology exam/ patient had a normal ocular exam , nerves appear to be okay * diplopia/ataxia: Diplopia resolved r/o GBS syndrome *headache likely due to viral meningitis vs possible CSF leak day #3/5 of IVIG will give a dose of ibuprofen one hour prior with Benadryl, will order IV fluids to make sure he is well hydrated he is requesting oxy/said this helped yesterday s/p blood patch/ no relief reviewed his care with Dr Shipley/ not clear why headache isn't lifting/will get an MRI * constipation bowel protocol * morphine use prior to admission drug screen is negative/ not a hx of habitual us: * IP status, given continued sxs and incomplete w/u he will require > 48 hours in house Subjective: Pedro said headache is not improving/ ongoing all day and eyes are sensitive to light. C/o nausea. Objective: Vital Signs Temp Pulse Resp BP Pulse Ox 36.6 C 58 L 14 120/74 94 11/08/16 08:00 11/08/16 08:00 11/08/16 08:00 11/08/16 08:00 11/08/16 08:00 Laboratory Results 11/08/16 08:36 11/08/16 08:36 11/07/16 11/08/16 11/09/16 05:59 05:59 05:59 Intake Total 1429 1607 Balance 1429 1607 PT 13.6 SEC (12.0-15.0) 11/05/16 09:00 INR 1.05 (0.83-1.16) 11/05/16 09:00 - Physical Exam Constitutional: uncomfortable, No no apparent distress, No not in pain Eyes: PERRL Ears, Nose, Mouth, Throat: hearing normal Respiratory: no respiratory distress Skin: warm Musculoskeletal: generalized weakness Neurologic: AAOx3 Psychiatric: thought process linear, anxious ICD10 Worksheet Patient Problems: Problems Problem Status Onset Ataxia Acute
--- NOTE | 2016-11-08 12:40 | NEUROPROG ---
Assessment: [id number] Narrative Summary: Pt seen 11/07/16. Please see Dr. Jaspal Cavanaugh notes from 11/05/16 and 11/06/16 for full details. HPI: Inpatient f/u 11/08/16. The patient feels better and hopes to go home when he can when I spoke with him. I spoke with Dr. Allen (ID) later and she reported the patient told her he continued to have significant 8-9/10 headache since the lumbar puncture (improved to 4/10 with pain medication) so he may have a post- LP headache we will proceed with a blood patch. The patient had been getting oxycodone for pain control but that can worsen headaches and also place him at risk for opiate dependency so I will stop that medication. We will also pre- medicate his IVIG with NSAIDs to help prevent any residual headache from the IVIG. Assessment: 1. Headache, visual disturbance, sense of ataxia, areflexia, mild CSF pleocytosis with lymphocytic predominance: It is felt the patient may have a viral meningitis but Ramsey-Archibald variant of acute inflammatory demyelinating polyneuropathy is also possible. Recs: - ID following and has patient on acyclovir until HSV meningitis excluded - Pt on 3 / 5 days of IVIG for possible AIDP variant (from a neurology perspective, it would be OK to complete these infusions at home if he has no other medical indication to remain in the hospital if the hospitalist and ID agree) - Agree with blood patch for possible post-LP headache, if no improvement tomorrow we can consider topamax 25 mg po qhs - Stop oxycodone and avoided all narcotics for headache therapy - Outpatient f/u with Dr. Jaspal Allen (neurology) 1 weeks after hospital discharge to monitor response to IVIG and ensure improvement Neurology will continue to follow. 35 min spent with patient, majority of time spent counseling on prognosis and treatment plan as well as discussing alternative causes of his symptoms. Objective: Vital Signs Temp Pulse Resp BP Pulse Ox 36.6 C 58 L 14 120/74 94 11/08/16 08:00 11/08/16 08:00 11/08/16 08:00 11/08/16 08:00 11/08/16 08:00 Laboratory Results 11/08/16 08:36 11/08/16 08:36 11/07/16 11/08/16 11/09/16 05:59 05:59 05:59 Intake Total 1429 1607 Balance 1429 1607 PT 13.6 SEC (12.0-15.0) 11/05/16 09:00 INR 1.05 (0.83-1.16) 11/05/16 09:00 Allergies/Adverse Reactions: No Known Allergies Allergy (Unverified 06/01/15 19:58)
[2016-11-08] MEDS: diphenhydrAMINE 25 MG CAP PO SCH (14:22)
[2016-11-08] MEDS: ACETAMINOPHEN 500 MG TAB PO SCH (14:22)
[2016-11-08] MEDS: IBUPROFEN 600 MG TAB PO SCH (14:22)
[2016-11-08] MEDS: IMMUNE GLOBULIN 10 GM/100 ML VIAL IV SCH (15:22)
[2016-11-08] MEDS ORDERED: NS 1,000 ML IV SCH (16:00)
[2016-11-08] MEDS: IMMUNE GLOBULIN 20 GM/200 ML VIAL IV SCH (17:30)
[2016-11-08] MEDS: TOPIRAMATE 25 MG TAB PO SCH (20:03)
[2016-11-08] MEDS ORDERED: GADOBUTROL 10 ML VIAL IVP ONE (20:16)
[2016-11-08 20:22] LABS: CMV DNA DETECTION AND QUANTIFI Undetected IU/mL (Undetected)
[2016-11-08] MEDS ORDERED: TOPIRAMATE 25 MG TAB PO SCH (21:00)
[2016-11-09] MEDS: ACETAMINOPHEN 325 MG TAB PO PRN ×2 (01:10→05:04)
[2016-11-09] MEDS ORDERED: LORazepam 2 MG/ML INJ IVP ONE (03:37)
--- NOTE | 2016-11-09 03:45 | HOSPPROG ---
Hospitalist Progress Note Assessment/Plan: Cross cover: Called by RN about new onset 12/06 R shoulder pain. Evaluated patient who described pain as if a "sledge hammer" had hit his shoulder. ROM was intact and did not affect pain. No visible or palpable deformity or skin changes noted; pulses intact. Reviewed chart to see Neurology service does not want additional opiates given. Patient has been receiving APAP and exhausted Toradol. Will write for Ativan x1 in case there is a muscle spam component to his discomfort. If pain persists, will likely need imaging despite reassuring exam. Objective: Vital Signs Temp Pulse Resp BP Pulse Ox 36.4 C 49 L 16 111/68 94 11/08/16 23:48 11/08/16 23:48 11/08/16 23:48 11/08/16 23:48 11/08/16 23:48 Laboratory Results 11/08/16 08:36 11/08/16 08:36 11/07/16 11/08/16 11/09/16 05:59 05:59 05:59 Intake Total 1429 1607 900 Balance 1429 1607 900 PT 13.6 SEC (12.0-15.0) 11/05/16 09:00 INR 1.05 (0.83-1.16) 11/05/16 09:00 ICD10 Worksheet Patient Problems: Problems Problem Status Onset Ataxia Acute
--- NOTE | 2016-11-09 08:23 | HOSPPROG ---
Hospitalist Progress Note Assessment/Plan: 25 yo M with no PMH presenting with c/o diplopia and ataxia felt to be most likely due to viral meningitis. Today is my first encounter with the patient/ chart reviewed. Reviewed his care with Dr. Allen and Dr Shipley. He will update the patient's parents on the plan of care. 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 Acyclovir was discontinued, HSV is negative This far HIV, enterovirus, syphilis, respiratory pathogen PCR, CSF culture is all negative multiple labs pending ([place], Zika) PT and OT have been ordered Dr Saba did a bedside ophthalmology exam/ patient had a normal ocular exam , nerves appear to be okay * diplopia/ataxia: Diplopia resolved r/o GBS syndrome *headache/is better today/ gave him Topamax likely due to viral meningitis vs possible CSF leak day #3/5 of IVIG will give a dose of ibuprofen one hour prior with Benadryl, will order IV fluids to make sure he is well hydrated repeat MRI shows nothing acute but sinusitis *acute shoulder pain this occurred during the night reviewed his care with Dr Chatterjee will get an xray/exam is benign * constipation bowel protocol * morphine use prior to admission drug screen is negative/ not a hx of habitual use: * Plan: will review his care with ID and neurology/ hopefully can be dc today/ PT will need to see to be sure he can do stairs Subjective: Pedro said his headache is better but says his shoulder has been hurting prior to this admission. Objective: Vital Signs Temp Pulse Resp BP Pulse Ox 36.4 C 48 L 16 134/84 H 95 11/08/16 23:48 11/09/16 08:00 11/09/16 08:00 11/09/16 08:00 11/09/16 08:00 Laboratory Results 11/08/16 08:36 11/08/16 08:36 11/08/16 11/09/16 11/10/16 05:59 05:59 05:59 Intake Total 1607 1717 Balance 1607 1717 PT 13.6 SEC (12.0-15.0) 11/05/16 09:00 INR 1.05 (0.83-1.16) 11/05/16 09:00 - Physical Exam Constitutional: no apparent distress, other (thin) Eyes: PERRL Ears, Nose, Mouth, Throat: hearing normal Respiratory: no respiratory distress Skin: warm Musculoskeletal: normal joint ROM (of right shoulder/ able to abduct, adduct/ straight raise it), generalized weakness Neurologic: AAOx3, sensation intact bilaterally Psychiatric: interacting appropriately, not anxious ICD10 Worksheet Patient Problems: Problems Problem Status Onset Ataxia Acute
[2016-11-09] MEDS: SENNOSIDES/DOCUSATE SODIUM TAB PO SCH (09:22)
[2016-11-09] MEDS: IBUPROFEN 600 MG TAB PO SCH (09:22)
[2016-11-09] MEDS: TOPIRAMATE 25 MG TAB PO SCH (09:23)
--- NOTE | 2016-11-09 11:44 | PCMIDPN ---
Assessment/Plan: # Mild Lymphocytic pleocytosis of CSF, possible meningitis with possible Ramsey- Meier variant of AIDP. All neurologic sx resolved. BOWERS almost resolved today. --Currently completing IVIG Day 06/01 today --awaiting WNV serologies --okay with DC from ID standpoint and get last dose in infusion center --reviewed imaging with patient and mom at bedside Subjective: patient feeling well minimal BOWERS, 2/10 wants to go home, can't get any sleep in the hospital Objective: Vital Signs Temp Pulse Resp BP Pulse Ox 36.4 C 48 L 18 134/84 H 95 11/08/16 23:48 11/09/16 08:00 11/09/16 08:23 11/09/16 08:00 11/09/16 08:00 Laboratory Results 11/08/16 08:36 11/08/16 08:36 11/08/16 11/09/16 11/10/16 05:59 05:59 05:59 Intake Total 1607 1717 776 Balance 1607 1717 776 - Physical Exam General Appearance: alert, no apparent distress, thin EENT: No thrush Respiratory: lungs clear, No accessory muscle use Neck: supple Cardiac/Chest: bradycardia Extremities: No pedal edema Neuro/Psych: no motor/sensory deficits, alert, normal mood/affect, oriented x 3 - Time Spent With Patient Time Spent with Patient: greater than 35 minutes (coordination of care, discharge planning) Time Spent with Patient: Greater than 35 minutes spent on this patients care, greater than 50% of time spent counseling, educating, and coordinating care regarding the above mentioned plan. ICD10 Worksheet Patient Problems: Problems Problem Status Onset Ataxia Acute
--- NOTE | 2016-11-09 12:05 | NEUROPROG ---
Assessment: [id number] Narrative Summary: Pt seen 11/07/16. Please see Dr. Jaspal Cavanaugh notes from 11/05/16 and 11/06/16 for full details. Inpatient f/u 11/08/16. The patient feels better and hopes to go home when he can when I spoke with him. I spoke with Dr. Allen (ID) later and she reported the patient told her he continued to have significant 8-9/10 headache since the lumbar puncture (improved to 4/10 with pain medication) so he may have a post- LP headache we will proceed with a blood patch. The patient had been getting oxycodone for pain control but that can worsen headaches and also place him at risk for opiate dependency so I will stop that medication. We will also pre- medicate his IVIG with NSAIDs to help prevent any residual headache from the IVIG. HPI: Inpatient f/u 11/09/16. Brain MRI stable (shows slightly improved sinusitis). He received blood patch w/o subjective improvement of headache. 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 This will take 4-8 weeks to reach max effect (pt counseled). His headache can be reassessed at f/u with Dr. Allen in 1 week outpatient. He also complained of right shoulder pain which I told him to discuss with the hospitalist. Rads: 11/08/16- Brain MRI w/ and w/o con: intracranial brain MRI normal, slightly improving sinusitis since last visit Assessment: 1. Headache, visual disturbance, sense of ataxia, areflexia, mild CSF pleocytosis with lymphocytic predominance: It is felt the patient may have a viral meningitis but Ramsey-Archibald variant of acute inflammatory demyelinating polyneuropathy is also possible. 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 2. Right Shoulder Pain: Defer to hospitalist service Recs: - ID following and has patient - Continue topamax 25 mg bid - Pt on 4 / 5 days of IVIG for possible AIDP variant - Stop oxycodone and avoided all narcotics for headache therapy (not effective for primary headache disorder which I feel he may have) - Outpatient f/u with Dr. Jaspal Allen (neurology) 1 weeks after hospital discharge to monitor response to IVIG and ensure improvement as well as determine if he needs continued topamax Neurology will continue to follow. 35 min spent with patient, majority of time spent counseling on headache therapy and prognosis. Objective: Vital Signs Temp Pulse Resp BP Pulse Ox 36.4 C 48 L 18 134/84 H 95 11/08/16 23:48 11/09/16 08:00 11/09/16 08:23 11/09/16 08:00 11/09/16 08:00 Laboratory Results 11/08/16 08:36 11/08/16 08:36 11/08/16 11/09/16 11/10/16 05:59 05:59 05:59 Intake Total 1607 1717 776 Balance 1607 1717 776 PT 13.6 SEC (12.0-15.0) 11/05/16 09:00 INR 1.05 (0.83-1.16) 11/05/16 09:00 Allergies/Adverse Reactions: No Known Allergies Allergy (Unverified 06/01/15 19:58)
[2016-11-09 12:54] LABS: INTERPRETATION See Comments; WEST NILE VIRUS IGG Negative (Negative); WEST NILE VIRUS IGM Negative (Negative)
[2016-11-09 14:16] VITALS: O2SAT 92
[2016-11-09] MEDS: ACETAMINOPHEN 500 MG TAB PO SCH (14:37)
[2016-11-09] MEDS: diphenhydrAMINE 25 MG CAP PO SCH (14:38)
[2016-11-09] MEDS: IMMUNE GLOBULIN 10 GM/100 ML VIAL IV SCH (15:18)
[2016-11-09] MEDS: IMMUNE GLOBULIN 20 GM/200 ML VIAL IV SCH (16:45)
[2016-11-09 17:36] VITALS: RESP 20
[2016-11-09 18:02] VITALS: TEMP 98.5
[2016-11-09 18:35] VITALS: BP 126/79; PULSE 66
--- NOTE | 2016-11-09 19:58 | GDS ---
[f rep st] DISCHARGE SUMMARY DISCHARGE DIAGNOSES: 1. Mild lymphocytic pleocytosis of cerebrospinal fluid, possible meningitis with possible Ramsey Archibald variant of acute inflammatory demyelinating polyneuropathy. 2. Diplopia, ataxia. 3. Headache. 4. Acute right shoulder pain. 5. Constipation. 6. Morphine use. CONSULTATIONS DURING HIS STAY: 1. Devante Allen with Infectious Disease. 2. Jaspal Allen with Neurology. 3. Dr.Kevin Saba with Opthalmology. 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 Prior to his admission, he took an extended release version of morphine one time. Had been feeling off; he felt foggy with general weakness and having diplopia. He also was having episodic headaches. He does not have IV drug use or any alcohol use. It was unclear the etiology of his symptoms because he had ataxia and lower extremity weakness. He had a lumbar spine MRI which showed L4-L5 with mild central canal stenosis and bilateral lateral recess stenosis secondary to a small central disk herniation. At L5-S1 he had a small central disk herniation, protrusion with an annular tear and mild bilateral facet arthropathy with moderate degenerative disk disease, however, no central canal or neural foraminal stenosis was noted. He subsequently had a lumbar puncture performed on 11/08/2016. Thus far, his serologies have been negative. There was concern that he had a viral meningitis , and he was treated with IV acyclovir. It was also unclear if he may have Ramsey Archibald variant of an acute inflammatory demyelinating polyneuropathy in which he was treated with IVIG. During his stay, he developed severe headaches. He had a repeat MRI which showed nothing acute. In addition, he had significant right shoulder pain. This was not noted to be anything acute. Today, he is feeling markedly better. The ataxia has resolved. He is able to walk much better. Headaches have improved. He will be discharged home today. He will come tomorrow and get treatment with IVIG tomorrow. This will be his last dose. HOSPITAL COURSE BY PROBLEM: 1. Mild lymphocytic pleocytosis of CSF, possible meningitis with possible Ramsey Archibald variant of AIDP. His neurologic symptoms have resolved. His headache has almost also resolved. Awaiting [place] serologies. He has received 4 doses of IVIG, and he will get another dose tomorrow as an outpatient. 2. Diplopia, ataxia. Both have resolved. He was seen and evaluated by Dr. Saba who did an eye exam on him who did not note any diplopia or any acute findings. 3. Headache. He is much improved today. He has been started on Topamax b.i.d. 4. Acute shoulder pain. This occurred during the night. His physical exam was benign. His x-ray shows nothing acute. Unclear if this could be related to possibly some type of a Guillain-Kemmerer syndrome but he is able to mobilize and move well. 5. Constipation on bowel protocol. 6. Morphine use. This was prior to admission. His drug screen is negative. He says he does not use this habitually. Recommending that he avoids all narcotics. PENDING LABS: [place] Nile virus is pending. CONDITION AT DISCHARGE: Stable. Blood pressure is 116/66, heart rate is 64, respiratory rate is 20, O2 saturation on room air are 92%. Temperature is 36.6 Celsius. MEDICATIONS AT DISCHARGE: Please see the EMR. DISCHARGE INSTRUCTIONS: 1. To come to [address] [place] [address] to receive IVIG tomorrow. 2. Take Topamax b.i.d. 3. Do not drink any alcohol and do not use narcotics. 4. To follow up with Dr. Allen next week. 5. If he develops any worsening weakness, return to the ER. Greater than 65 minutes discharging and coordinating his care. /[id number]/MODL MTDD
--- NOTE | 2016-11-10 11:20 | ASDISCHSUM ---
Discharge Information Plan Status:Home with No Needs Medically Cleared to Leave: Discharge Date:11/09/2016 07:23 PM D/C Disposition:Home, Routine, Self-Care ADT D/C Disposition:Home, Routine, Self-Care Projected Discharge Date:11/09/2016 11:00 AM Transportation at D/C:Friend Discharge Delay Reason: Follow-Up Date:11/09/2016 11:00 AM Discharge Slot: Final Diagnosis: Placement Information Referral Type:Home Infusion Referral ID:[id number] Provider Name: Address 1: Phone Number: Address 2: Fax Number: City: [facility] Factors: State: Patient Contact Information Contact Name:CARINA Relationship:Other Address: Work Phone: [facility] Phone: [facility] Code:[place] Email: Financial Information Financial Class:HMO and PPO Plans Primary Plan Desc: OUT OF STATE PPO Primary Plan Number:[id number] Secondary Plan Desc: Secondary Plan Number: Assessment Information [facility] CM Progress Note CM Note CM Note Notes: Reviewed chart, spoke w/ RADHA Kunz. Pt admitted w/ new onset of ataxia, BOWERS w/ neurologic symptoms. ID and Neurology following; pt's dx remains unclear. Pt is a [employer] student and lives in an apartment w/ roommates. Discharge plan and needs remain TBD at this time. CM will cont to follow. Date Signed: 11/06/2016 02:14 PM Electronically Signed By:Monique Stubbs RN [facility] CM Progress Note CM Note CM Note Notes: Met with patient regarding discharge plan of care. Patient is a student at , resides in an apartment. Pt declines Case Management assistance at this time. Has been cleared by PT. Anticipate home independently when medically stable. Case Management available should needs arise. Date Signed: 11/07/2016 11:04 AM Electronically Signed By:Dipika Paris RN Intervention Information
== END 2016-11-09 19:23 | disposition home or self-care (01) | DRG 76 ==
LOC: F3N 13:30 → OBSVTOIN 11-06 12:18
PROVIDERS: ADMIT Internal Medicine; ATTEND Internal Medicine
PROC: 009U3ZX Drainage of Spinal Canal, Percutaneous Approach, Diagnostic (ICD-10-PCS; principal; 2016-11-05)
PROC: 3E0S3GC Introduction of Other Therapeutic Substance into Epidural Space, Percutaneous Approach (ICD-10-PCS; 2016-11-08)
DX: A87.9 Viral meningitis, unspecified (principal); G61.0 Guillain-Barre syndrome; H53.2 Diplopia; R27.0 Ataxia, unspecified; M25.511 Pain in right shoulder; K59.00 Constipation, unspecified; F11.90 Opioid use, unspecified, uncomplicated
CPT/HCPCS: 80305; 87497-90; 87798-90; 92507-GN; 92523-GN; 97116-GP; 97161-GP; 97166-GO; A9585; G0378; G0480; G8978-GP-CK; G8979-GP-CI; J0133; J0696; J1459; J1885; J2060; J3370

== ENCOUNTER 2016-11-10 15:01 | Outpatient (CLI) | payer BC ==
[2016-11-10] MEDS ORDERED: diphenhydrAMINE 25 MG CAP PO PRN (15:30)
[2016-11-10] MEDS ORDERED: ACETAMINOPHEN 325 MG TAB PO PRN (15:30)
[2016-11-10 16:07] VITALS: RESP 17
[2016-11-10] MEDS ORDERED: IMMUNE GLOBULIN 10 GM/100 ML VIAL IV ONE (16:30)
[2016-11-10] MEDS ORDERED: IMMUNE GLOBULIN 20 GM/200 ML VIAL IV ONE (16:30)
[2016-11-10 17:44] VITALS: O2SAT 96
[2016-11-10 18:33] VITALS: BP 110/67; PULSE 62; TEMP 97.9
== END 2016-11-10 19:18 | disposition home or self-care (01) ==
LOC: F1NOP 15:01
PROVIDERS: ATTEND Nurse Practitioner Family
PROC: 3E033GC Introduction of Other Therapeutic Substance into Peripheral Vein, Percutaneous Approach (ICD-10-PCS; principal; 2016-11-10)
DX: G61.0 Guillain-Barre syndrome (principal)
CPT/HCPCS: J1459

== ENCOUNTER 2017-06-04 16:19 | Emergency (ER) | payer OTHER ==
[2017-06-04] MEDS ORDERED: IBUPROFEN 800 MG TAB PO ONE ×2 (16:37→16:39)
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
[2017-06-04] MEDS ORDERED: OXYCODONE/APAP 5/325 TAB PO ONE (17:25)
[2017-06-04 18:49] VITALS: BP 124/81
== END 2017-06-04 18:48 | disposition home or self-care (01) ==
DX: S52.122A Displaced fracture of head of left radius, initial encounter for closed fracture (principal); S30.811A Abrasion of abdominal wall, initial encounter; Z87.891 Personal history of nicotine dependence; V28.9XXA Unspecified motorcycle rider injured in noncollision transport accident in traffic accident, initial encounter
CPT/HCPCS: A4565